=== PATIENT | female | born 1945 | race Caucasian/White ===

== ENCOUNTER 2020-02-16 16:55 | Inpatient (IN) ==
[2020-02-16] MEDS ORDERED: SODIUM CHLORIDE 0.9% 1000ML 1,000 ML IV SCH (17:15)
--- NOTE | 2020-02-16 17:18 | Emergency Department Note ---
Impression & Plan Fall, Acute hip pain ED Provider Note INFORMANT: Patient ED PROVIDER(S): Dillon Viveors MD CHIEF COMPLAINT: Left hip pain PLAN: Disposition: Admit Condition: Good MEDICAL DECISION MAKING: Patient had an accidental fall. She complained of isolated left hip and pelvic pain. She was treated with Dilaudid and Zofran. She was feeling better with this. The patient had x-ray imaging which shows an acute hip fracture. The patient had a consultation placed with [facility], Dr. Perea. The patient will be admitted. I discussed the case with the hospitalist service, Dr. Atkins. Patient and were informed. I gave my usual and customary discussion regarding this issue. Triage Nursing notes reviewed and agree them. Vital Signs: reviewed and remarkable for no significant abnormalities Differential diagnosis: Fracture, subluxation, dislocation, contusion, ligamentous injury, neurovascular, compartment syndrome, rhabdomyolysis, as well as other pathologies. Diagnostics interpreted by me: Imaging studies: X-ray imaging of the left hip reveals a fracture of the femoral neck. Consultation(s): [facility] hospitalist service HPI: The patient is a 74 year old female who presents to the Emergency Room with complaints of left hip pain. This started this afternoon after a fall and is sharp and worse with movement. The patient also notes the following associated symptoms, none. The patient has been given IV fentanyl by EMS for relieving factors. Current pain is rated as 4/10. Patient states she fell accidentally and landed on the left side. She is due to have left hip surgery by [facility] in 3 days. Pt denies LOC, headache, fevers, chills, diaphoresis, visual changes, neck pain, chest pain, breathing difficulties, nausea, vomiting, abdominal pain, back pain, melena, hematochezia, urinary symptoms, numbness, weakness, lymphadenopathy, rash, or other complaints. ROS: See above HPI for pertinent positives & negatives. A total of 10 systems reviewed and were otherwise negative. PAST MEDICAL HISTORY:See Below degenerative disc disease PAST SURGICAL HISTORY:See Below total knee replacement, total hip replacement FAMILY HISTORY:See Below SOCIAL HISTORY:See Below HOME MEDICATIONS:See Below ALLERGIES:See Below VITALS:See Below PHYSICAL EXAMINATION: GENERAL: Awake, alert, uncomfortable-appearing, in no distress HENT: Normocephalic, atraumatic. Oropharynx unremarkable. EYES: Normal conjunctiva. Sclera non-icteric. NECK: Inspection normal. Non-tender. Supple. No nuchal rigidity. FROM. No masses. RESPIRATORY: Clear to auscultation. No wheezes. No rales. Normal respiratory effort. CARDIAC: Normal rate. Normal rhythm. No murmurs. No rubs. Extremities warm and well perfused. Pulses equal. No JVD. GI: Soft, non-distended. No tenderness to palpation. No rebound or guarding. No masses. RECTAL: Deferred. MUSCULOSKELETAL: Limited range of motion of the left hip secondary to pain. Tenderness of the left hip and hemipelvis. Chest examination reveals no tenderness. The back is symmetrical on inspection without obvious abnormality. There is no CVA tenderness to palpation. No joint edema. LOWER EXTREMITIES: Calves are equal size bilaterally and non-tender. No edema. No discoloration. NEURO: Normal sensorium. No sensory or motor deficits noted. SKIN: No rash or jaundice noted. ED COURSE: Critical Care: None Dillon Viveros MD Past Med/Surg History Medical History (Updated 02/16/20 @ 20:24 by Morales Atkins MD) Anxiety Arthritis GERD (gastroesophageal reflux disease) Osteoporosis Surgical History (Updated 07/15/19 @ 10:14 by Tico Carranza) History of back surgery DISCECTOMY History of carpal tunnel release RIGHT History of cataract surgery R/L History of colonoscopy History of hysterectomy OVARIES REMAIN History of knee replacement R and L Social History Smoking Status: Former smoker Tobacco Type: Cigarettes Second Hand Exposure: Yes; Hx Alcohol Use: No Hx Substance Use: No Preferred Language: Romanian Communication Ability: Effective [employer] Required: No Beliefs That Will Affect Care: None marital status: Current Living Situation: Spouse Other Information That Helps Us Care for You: No Feels Safe at Home: Yes Safety Concerns: Feels Safe At This Time Allergies Allergies Allergy/AdvReac Type Severity Reaction Status Date / Time No Known Allergies Allergy Verified 02/16/20 19:36 Home Meds Home Medications Medication Instructions Recorded Confirmed risedronate [Actonel] 150 mg PO MONTHLY 07/02/19 02/16/20 sertraline [Zoloft] 25 mg PO QAM 07/02/19 02/16/20 omeprazole 40 mg PO QAM 02/16/20 02/16/20 Results & Data (ED) Vital Signs Vital Signs - 24 hr 02/16/20 16:55 02/16/20 17:29 02/16/20 17:30 Temperature 36.7 C Temperature Source Oral Pulse Rate 72 76 Pulse Rate [Apical] 75 Pulse Rate from SpO2 Sensor 75 Respiratory Rate 20 20 23 Respiratory Effort / Characteristics Non-Labored Non-Labored Spontaneous Respiratory Depth Normal Normal Respiratory Pattern Regular Blood Pressure 158/55 H 184/71 H Blood Pressure [Right Arm] 158/55 H Blood Pressure Mean 89 113 Blood Pressure Mean [Right Arm] 89 Blood Pressure Position [Right Arm] Pulse Oximetry 95 96 95 Oxygen Delivery Method Room Air Room Air Sepsis Recent Fever Within 48 Hours No Sepsis New/Unexplained Change in Mental Status N/A Sepsis Action Taken by Nursing No Action Required 02/16/20 17:36 02/16/20 18:00 02/16/20 18:30 Temperature Temperature Source Pulse Rate 77 74 76 Pulse Rate [Apical] Pulse Rate from SpO2 Sensor 78 74 76 Respiratory Rate 19 16 17 Respiratory Effort / Characteristics Respiratory Depth Respiratory Pattern Blood Pressure 172/74 H 156/76 H Blood Pressure [Right Arm] Blood Pressure Mean 92 102 Blood Pressure Mean [Right Arm] Blood Pressure Position [Right Arm] Pulse Oximetry 96 91 93 Oxygen Delivery Method Sepsis Recent Fever Within 48 Hours Sepsis New/Unexplained Change in Mental Status Sepsis Action Taken by Nursing 02/16/20 19:00 Temperature Temperature Source Pulse Rate Pulse Rate [Apical] 72 Pulse Rate from SpO2 Sensor Respiratory Rate 16 Respiratory Effort / Characteristics Respiratory Depth Respiratory Pattern Blood Pressure Blood Pressure [Right Arm] 150/87 H Blood Pressure Mean Blood Pressure Mean [Right Arm] 108 Blood Pressure Position [Right Arm] Lying Pulse Oximetry 93 Oxygen Delivery Method Room Air Sepsis Recent Fever Within 48 Hours Sepsis New/Unexplained Change in Mental Status Sepsis Action Taken by Nursing Laboratory Data Result diagrams: 02/16/20 17:55 02/16/20 17:55 Lab Results 02/16/20 02/16/20 02/16/20 Range/Units 17:55 17:55 17:55 WBC 13.47 H (4.8-10.8) K/uL RBC 4.25 (4.2-5.4) M/uL Hgb 12.5 (12.0-16.0) g/dL Hct 39.4 (37-47) % MCV 92.7 (80-100) fL MCH 29.4 (25-34) pg MCHC 31.7 L (32-36) g/dL RDW Std Deviation 46.6 H (36.4-46.3) fL RDW Coeff of Puja 13.6 (11.5-14.5) % Plt Count 291 (130-400) K/uL MPV 11.7 H (7.4-10.4) fL Immature Gran % (Auto) 0.2 % Neut % (Auto) 83.0 % Lymph % (Auto) 9.3 % Archuleta % (Auto) 7.1 % Eos % (Auto) 0.3 % Baso % (Auto) 0.1 % Neut # (Auto) 11.18 H (1.4-6.5) K/uL Lymph # (Auto) 1.25 (1.2-3.4) K/uL Archuleta # (Auto) 0.96 H (0.11-0.59) K/uL Eos # (Auto) 0.04 (0-0.5) K/uL Baso # (Auto) 0.01 (0-0.2) K/uL Immature Gran # (Auto) 0.03 H (0.00-0.02) K/uL PT 11.6 (9.0-12.0) Seconds INR 1.1 (0.9-1.1) APTT 27.1 (21.0-31.0) Seconds PTT Ratio 1.0 Sodium 137 (136-145) mmol/L Potassium 4.4 (3.5-5.1) mmol/L Chloride 108 H (98-107) mmol/L Carbon Dioxide 23 (21-32) mmol/L Anion Gap 6.0 (3-11) BUN 26 H (7-18) mg/dl Creatinine 1.03 (0.6-1.2) mg/dl Est Cr Clr Drug Dosing Not Reportable Est GFR ( Amer) 62.5 Est GFR (Non-Af Amer) 53.9 BUN/Creatinine Ratio 25.0 H (10-20) Glucose 112 H (70-99) mg/dl Calcium 9.4 (8.5-10.1) mg/dl Urine Color Urine Appearance (Clear) Urine pH (4.5-7.5) Ur Specific Cando (1.000-1.030) Urine Protein (Negative) Urine Glucose (UA) (Negative) Urine Ketones (Negative) Urine Blood (Negative) Urine Nitrite (Negative) Urine Bilirubin (Negative) Urine Urobilinogen (Negative) Ur Leukocyte Esterase (Negative) 02/16/20 Range/Units 18:50 WBC (4.8-10.8) K/uL RBC (4.2-5.4) M/uL Hgb (12.0-16.0) g/dL Hct (37-47) % MCV (80-100) fL MCH (25-34) pg MCHC (32-36) g/dL RDW Std Deviation (36.4-46.3) fL RDW Coeff of Puja (11.5-14.5) % Plt Count (130-400) K/uL MPV (7.4-10.4) fL Immature Gran % (Auto) % Neut % (Auto) % Lymph % (Auto) % Archuleta % (Auto) % Eos % (Auto) % Baso % (Auto) % Neut # (Auto) (1.4-6.5) K/uL Lymph # (Auto) (1.2-3.4) K/uL Archuleta # (Auto) (0.11-0.59) K/uL Eos # (Auto) (0-0.5) K/uL Baso # (Auto) (0-0.2) K/uL Immature Gran # (Auto) (0.00-0.02) K/uL PT (9.0-12.0) Seconds INR (0.9-1.1) APTT (21.0-31.0) Seconds PTT Ratio Sodium (136-145) mmol/L Potassium (3.5-5.1) mmol/L Chloride (98-107) mmol/L Carbon Dioxide (21-32) mmol/L Anion Gap (3-11) BUN (7-18) mg/dl Creatinine (0.6-1.2) mg/dl Est Cr Clr Drug Dosing Est GFR ( Amer) Est GFR (Non-Af Amer) BUN/Creatinine Ratio (10-20) Glucose (70-99) mg/dl Calcium (8.5-10.1) mg/dl Urine Color Yellow Urine Appearance Clear (Clear) Urine pH 6.5 (4.5-7.5) Ur Specific Cando 1.017 (1.000-1.030) Urine Protein Negative (Negative) Urine Glucose (UA) Negative (Negative) Urine Ketones Negative (Negative) Urine Blood Negative (Negative) Urine Nitrite Negative (Negative) Urine Bilirubin Negative (Negative) Urine Urobilinogen Negative (Negative) Ur Leukocyte Esterase Negative (Negative) Administered Medications Promethazine HCl 12.5 mg/ (Sodium Chloride) 50.5 mls @ 202 mls/hr IV Q6H PRN PRN Reason: Nausea And Vomiting Stop: 03/17/20 20:41 Last Infusion: 02/16/20 22:45 Dose: 0 mls/hr Documented by: [id number] Admin: 02/16/20 22:20 Dose: 202 mls/hr Documented by: [id number] Acetaminophen (Ofirmev) 1,000 mg in 100 mls @ 400 mls/hr IV Q8H PRN PRN Reason: Pain or Fever Stop: 02/19/20 21:14 Last Infusion: 02/16/20 21:39 Dose: 0 mls/hr Documented by: [id number] Admin: 02/16/20 21:22 Dose: 400 mls/hr Documented by: [id number] Lactated Ringer's (Lr) 1,000 mls @ 125 mls/hr IV .Q8H MARTY Stop: 03/17/20 22:44 Last Admin: 02/16/20 22:42 Dose: 125 mls/hr Documented by: [id number] Senna/Docusate Sodium (Docusate Sodium/Senna 50/8.6mg Tab) 2 tab PO HS MARTY Stop: 03/17/20 20:59 Last Admin: 02/16/20 21:09 Dose: Not Given Documented by: [id number] Discontinued Medications Hydromorphone HCl (Hydromorphone Inj 0.5 Mg/0.5 Ml Syr) 0.5 mg IV Q20M PRN PRN Reason: Severe Pain (Rating 7,8,9,10) Stop: 03/01/20 17:10 Last Admin: 02/16/20 20:13 Dose: 0.5 mg Documented by: [id number] Admin: 02/16/20 18:10 Dose: 0.5 mg Documented by: [id number] Admin: 02/16/20 17:35 Dose: 0.5 mg Documented by: [id number] Sodium Chloride (Nss 1000ml) 1,000 mls @ 75 mls/hr IV .[id number] MARYT Stop: 02/17/20 06:34 Last Infusion: 02/16/20 21:34 Dose: 0 mls/hr Documented by: [id number] Infusion: 02/16/20 21:26 Dose: 0 mls/hr Documented by: [id number] Admin: 02/16/20 17:30 Dose: 75 mls/hr Documented by: [id number] Promethazine HCl 6.25 mg/ (Sodium Chloride) 50.25 mls @ 201 mls/hr IV NOW STA Stop: 02/16/20 20:34 Last Admin: 02/16/20 20:25 Dose: Not Given Documented by: [id number] Ondansetron HCl (Ondansetron Inj 2 Mg/Ml 2 Ml Vial) 4 mg IV NOW STA Stop: 02/16/20 18:16 Last Admin: 02/16/20 18:18 Dose: 4 mg Documented by: [id number] Ondansetron HCl (Ondansetron Inj 2 Mg/Ml 2 Ml Vial) 4 mg IV NOW STA Stop: 02/16/20 20:21 Last Admin: 02/16/20 20:24 Dose: 4 mg Documented by: [id number] Ondansetron HCl (Ondansetron Inj 2 Mg/Ml 2 Ml Vial) Confirm Administered Dose 4 mg .ROUTE .STK-MED ONE Stop: 02/16/20 20:22 Last Admin: 02/16/20 20:24 Dose: Not Given Documented by: [id number] Discharge Plan Visit Data Chief Complaint: Fall Stated Complaint: FALL, L HIP PAIN ED Provider: Dillon Viveros Discharge Problem: Fall, Acute hip pain Patient Disposition: Admitted As Inpatient Discharge Instructions Interventions: ED Discharge Assessment Last Done: 02/16/20 20:09
[2020-02-16] MEDS: HYDROmorphone INJ 0.5 MG/0.5 ML SYR IV PRN ×3 (17:35→20:13)
--- NOTE | 2020-02-16 17:55 | XRay Report ---
XR hip LT 2V w pelvis HISTORY: 74 years-old Female fall acute left hip pain status post fall COMPARISON: None TECHNIQUE: AP view of the pelvis with crosstable lateral view of the left hip FINDINGS: Demineralized appearance of the bones. Right hip total joint arthroplasty. Degenerative changes of th e SI joints and imaged lower lumbar spine. Moderate left hip osteoarthritis. There is an acute transc ervical fracture of the left femur which demonstrates fracture separation measuring up to approximate ly 7 mm. No associated displacement. There is mild associated impaction along the inferomedial cortex . IMPRESSION: Acute slightly impacted transcervical fracture of the left femur. ACT 112: Negative or not required by law. The above report was generated using voice recognition software. It may contain grammatical, syntax o r spelling errors. Electronically signed by: Vahid Walton M.D. 02/16/2020 5:53 PM
[2020-02-16 18:06] LABS: Basophils # (auto) 0.01 K/uL (0-0.2); Basophils % (auto) 0.1 %; Eosinophils # (auto) 0.04 K/uL (0-0.5); Eosinophils % (auto) 0.3 %; Hematocrit (blood only) 39.4 % (37-47); Hemoglobin 12.5 g/dL (12.0-16.0); Immature Granulocytes # (auto) 0.03 K/uL (0.00-0.02); Immature Granulocytes % (auto) 0.2 %; Lymphocytes # (auto) 1.25 K/uL (1.2-3.4); Lymphocytes % (auto) 9.3 %; Mean Corpuscular Hemoglobin 29.4 pg (25-34); Mean Corpuscular Hgb Conc 31.7 g/dL (32-36); Mean Corpuscular Volume 92.7 fL (80-100); Mean Platelet Volume 11.7 fL (7.4-10.4); Monocytes # (auto) 0.96 K/uL (0.11-0.59); Monocytes % (auto) 7.1 %; Neutrophils # (auto) 11.18 K/uL (1.4-6.5); Platelet Count 291 K/uL (130-400); RDW Coefficient of Variation 13.6 % (11.5-14.5); RDW Standard Deviation 46.6 fL (36.4-46.3); Red Blood Count 4.25 M/uL (4.2-5.4); White Blood Count 13.47 K/uL (4.8-10.8)
[2020-02-16] MEDS ORDERED: ONDANSETRON INJ 2 MG/ML 2 ML VIAL IV STA ×2 (18:15→20:20)
[2020-02-16 18:18] LABS: INR 1.1 (0.9-1.1); Partial Thromboplastin Time 27.1 Seconds (21.0-31.0); Prothrombin Time 11.6 Seconds (9.0-12.0)
[2020-02-16 18:21] LABS: Blood Urea Nitrogen 26 mg/dl (7-18); Calcium 9.4 mg/dl (8.5-10.1); Carbon Dioxide 23 mmol/L (21-32); Chloride 108 mmol/L (98-107); Est GFR (African American) 62.5; Est GFR (Non-African American) 53.9; Glucose 112 mg/dl (70-99); Potassium 4.4 mmol/L (3.5-5.1); Sodium 137 mmol/L (136-145)
[2020-02-16 19:08] LABS: Appearance Urine Clear (Clear); Bilirubin Urine Negative (Negative); Blood Urine Negative (Negative); Color Urine Yellow; Glucose Urine UA Negative (Negative); Ketones Urine Negative (Negative); Leukocyte Esterase Urine Negative (Negative); Nitrite Urine Negative (Negative); Protein Urine Negative (Negative); Specific Gravity Urine 1.017 (1.000-1.030); Urobilinogen Urine Negative (Negative); pH Urine 6.5 (4.5-7.5)
--- NOTE | 2020-02-16 20:11 | History & Physical Report ---
Date of Service February 16, 2020 Assessment & Plan (1) Fall: Suspected mechanical fall secondary to OA Left hip. (2) Closed left hip fracture: Consult orthopedics. NPO after midnight. Analgesia with acetaminophen primarily given significant side effects to opiates Antiemetics with ondansetron +/- Phenergan CXR/EKG for pre-op clearance Revised cardiac risk score 0; 3.9% 30-day risk of , [place], or cardiac arrest (3) Osteoporosis: Vitamin D level with AM labs Follow up with PCP given extended duration of Actonel. (4) Anxiety: Continue sertraline 25mg PO QAM (5) GERD (gastroesophageal reflux disease): Switch omeprazole for pantoprazole as per hospital formulary (6) DVT prophylaxis: SCDs Chemical prophylaxis post operatively as per orthopedics recommendations Admission and Anticipated Discharge Date Admission Date: 02/16/2020 History of Present Illness Chief Complaint: Fall, Left hip pain Primary Care Provider: Malou Gomes Sriram Bazan is a 74 year old female who presents to the ER with left hip pain after tripping up a step at home. She has been having problems with left hip osteoarthritis with planned total hip replacement in the near future. She feels the pain and instability in this hip led to her fall. Tripped walking up 1 step. No dizziness, shortness of breath prior to the fall. No loss of consciousness or hitting her head. She denies any history fo strokes or heart attacks. Takes Actonel for osteopor osis for the last 6-7 years and reports no recent DEXA scans within the last 2 years. Allergies Allergy/AdvReac Type Severity Reaction Status Date / Time No Known Allergies Allergy Verified 02/16/20 19:36 Home Medications Home Medications Medication Instructions Recorded Confirmed Type risedronate [Actonel] 150 mg PO MONTHLY 07/02/19 02/16/20 History sertraline [Zoloft] 25 mg PO QAM 07/02/19 02/16/20 History omeprazole 40 mg PO QAM 02/16/20 02/16/20 History Past Med/Surg History Medical History Anxiety Arthritis GERD (gastroesophageal reflux disease) Osteoporosis Surgical History History of back surgery DISCECTOMY History of carpal tunnel release RIGHT History of cataract surgery R/L History of colonoscopy History of hysterectomy OVARIES REMAIN History of knee replacement R and L Social History Smoking Status: Former smoker Tobacco Type: Cigarettes Second Hand Exposure: Yes; Hx Alcohol Use: No Hx Substance Use: No Preferred Language: Setswana Communication Ability: Effective Certified [employer]ologic Technician Required: No Beliefs That Will Affect Care: None marital status: Current Living Situation: Spouse Other Information That Helps Us Care for You: No Feels Safe at Home: Yes Safety Concerns: Feels Safe At This Time Review of Systems Review of Systems: All systems reviewed & are unremarkable except as noted in HPI & below Physical Exam Constitutional: WD/WN, vitals as above Eyes: PERRL, conjunctivae normal, anicteric sclerae ENMT: external ear and nose normal, oropharynx normal Neck: trachea midline, no thyromegaly Respiratory: normal respiratory effort, lungs clear to auscultation Cardiovascular: RRR, no murmur, no edema Gastrointestinal (Abdomen): normal bowel sounds, soft, nontender, no hepatosplenomegaly Musculoskeletal: Holding left hip in flexion and external rotation. Closed skin. NV intact distally. Pain with minimal int/ext hip rotation. Skin: no rashes, warm and dry Neurologic: moves all extremities and awake; not confused Psychiatric: A+Ox3, euthymic affect Results & Data Results & Data ([facility]) Vital Signs (Past 12 Hours) Vital Signs Temp Pulse Pulse Resp BP BP Pulse Ox 02/16/20 19:00 72 16 150/87 H 93 02/16/20 18:30 76 17 156/76 H 93 02/16/20 18:00 74 16 172/74 H 91 02/16/20 17:36 77 19 96 02/16/20 17:30 76 23 184/71 H 95 02/16/20 17:29 75 20 158/55 H 96 02/16/20 16:55 36.7 C 72 20 158/55 H 95 Diagnostic Findings XR hip LT 2V w pelvis IMPRESSION: Acute slightly impacted transcervical fracture of the left femur. Code Status & VTE Plan Code Status Full as discussed with the patient VTE Prophylaxis Plan VTE Prophylaxis will be ordered: Yes PG Care Time/CCT Total # of Minutes Spent Total Time Spent with Patient: Total time spent is greater than 50% in coordina tion of care (as documented) at patient's floor/unit and/or counseling patient: Coding Level of Care Code 26263 Initial Inpt Care Lvl 2 Diagnoses Fall W19.XXXA Closed left hip fracture S72.002A Osteoporosis M81.0 Anxiety F41.9 GERD (gastroesophageal reflux disease) K21.9 DVT prophylaxis Z29.9
[2020-02-16] MEDS ORDERED: PROMETHAZINE HCL 6.25 MG in SODIUM CHLORIDE 0.9% 50 ML IV STA (20:20)
[2020-02-16] MEDS ORDERED: ONDANSETRON INJ 2 MG/ML 2 ML VIAL ONE (20:21)
[2020-02-16] MEDS ORDERED: NALOXONE HCL 0.4 MG/1 ML VIAL/CARP IV PRN (20:42)
[2020-02-16] MEDS ORDERED: MAGNESIUM HYDROXIDE SUSP 30 ML UDC PO PRN (20:42)
[2020-02-16] MEDS ORDERED: bisacodyL 10 MG SUPP PR PRN (20:42)
[2020-02-16] MEDS ORDERED: PROMETHAZINE HCL 12.5 MG in SODIUM CHLORIDE 0.9% 50 ML IV PRN (20:42)
[2020-02-16] MEDS: DOCUSATE SODIUM/SENNA 50/8.6MG TAB PO SCH (21:09)
[2020-02-16] MEDS ORDERED: ONDANSETRON INJ 2 MG/ML 2 ML VIAL IV PRN (21:15)
[2020-02-16] MEDS: ACETAMINOPHEN 1,000 MG/100 ML VIAL IV PRN (21:22)
[2020-02-16] MEDS: LACTATED RINGER'S 1,000 ML IV SCH (22:42)
[2020-02-17] MEDS: HYDROmorphone INJ 0.5 MG/0.5 ML SYR IV PRN ×4 (04:49→14:12)
[2020-02-17] MEDS: LACTATED RINGER'S 1,000 ML IV SCH ×2 (04:49→12:24)
[2020-02-17 06:12] LABS: Hematocrit (blood only) 34.8 % (37-47); Hemoglobin 11.3 g/dL (12.0-16.0); Mean Corpuscular Hemoglobin 30.5 pg (25-34); Mean Corpuscular Hgb Conc 32.5 g/dL (32-36); Mean Corpuscular Volume 93.8 fL (80-100); Mean Platelet Volume 11.6 fL (7.4-10.4); Platelet Count 257 K/uL (130-400); RDW Coefficient of Variation 13.7 % (11.5-14.5); RDW Standard Deviation 47.3 fL (36.4-46.3); Red Blood Count 3.71 M/uL (4.2-5.4); White Blood Count 9.03 K/uL (4.8-10.8)
[2020-02-17 06:41] LABS: BUN Creatinine Ratio 25.2 (10-20); Calcium 9.3 mg/dl (8.5-10.1); Creatinine Clr Calc Pharmacy 54.2 ml/min; Est GFR (African American) 70.7; Potassium 4.5 mmol/L (3.5-5.1)
[2020-02-17] MEDS: PANTOprazole 40 MG TAB PO SCH (07:58)
[2020-02-17] MEDS: SERTRALINE HCL 50 MG TABLET PO SCH (07:59)
--- NOTE | 2020-02-17 08:00 | Orthopedic Consultation ---
Date of Consultation February 17, 2020 Assessment & Plan (1) Closed left hip fracture: Patient was scheduled for left total hip arthroplasty this week. Plans will be for left total hip arthroplasty hopefully today. At this time, the patient understands that Dr. Payne may not be available to do her surgery and is agreeable to have 1 of our [facility] physicians here in [place] to perform the left MINDY. Patient states that she had some preop testing done yesterday including a COVID-19 test. We have called [facility] to see if that test is back. If not we will order a preop COVID-19 test here. Plan for left MINDY today Supervising Physician Co-Signing Physician Notes Patient seen and examined agree with above assessment and plan. History of Present Illness Reason for Consultation: Left hip fracture Attending Physician: Morales Atkins MD History of Present Illness Patient is a 74-year-old white female known to our practice with h/o R MINDY performed June 2019 at [facility], who was admitted last night for left hip fracture. The patient states that she was scheduled for a left total hip arthroplasty with Dr. Sierra this week. Patient states that she was using a walker for ambulation due to the amount of pain she was having with the left hip and her arthritis. She was trying to go up 1 step from her garage into her home and lost her balance. She fell onto the floor and had immediate pain in the left hip and groin. She was unable to ambulate due to the pain. She states that her tried to help her up and the pain was excruciating. She was brought to [facility] emergency room and was seen by the staff. X-rays were taken and was found that she had a left displaced femoral neck fracture. She denies any shortness of breath, chest pain, lightheadedness prior to or after the fall. She denies hitting her head. She denies losing consciousness. Patient currently awake and stating that she is having some discomfort in the left hip. No other complaints at this time. She is hoping her total hip replacement can be done today. Allergies Allergy/AdvReac Type Severity Reaction Status Date / Time No Known Allergies Allergy Verified 02/16/20 19:36 Home Medications Home Medications Medication Instructions Recorded Confirmed Type risedronate [Actonel] 150 mg PO MONTHLY 07/02/19 02/16/20 History sertraline [Zoloft] 25 mg PO QAM 07/02/19 02/16/20 History omeprazole 40 mg PO QAM 02/16/20 02/16/20 History Patient History Medical History Anxiety Arthritis GERD (gastroesophageal reflux disease) Osteoporosis Surgical History History of back surgery DISCECTOMY History of carpal tunnel release RIGHT History of cataract surgery R/L History of colonoscopy History of hysterectomy OVARIES REMAIN History of knee replacement R and L Social History Smoking Status: Former smoker Tobacco Type: Cigarettes Second Hand Exposure: Yes; Hx Alcohol Use: No Hx Substance Use: No Preferred Language: Bel[place]an Communication Ability: Effective Physician Assistant Certified Required: No Beliefs That Will Affect Care: None marital status: Current Living Situation: Spouse Other Information That Helps Us Care for You: No Feels Safe at Home: Yes Safety Concerns: Feels Safe At This Time Review of Systems Review of Systems: All systems reviewed & are unremarkable except as noted in HPI & below Physical Exam Physical Exam: Patient is a mildly obese white female who is alert and oriented x3, mild amount of distress due to left hip pain, pleasant and cooperative. On examination of her left lower extremity, it is mildly shortened and externally rotated compared to her right. Left thigh is soft and mildly tender on the lateral aspect of the hip. No range of motion is done at this ti me due to hip fracture. There are no abrasions or bruising noted in lateral hip at this time. Sensation is intact over the thigh and she is nontender at the left knee. No range of motion is done of the left knee at this time due to left hip fracture. Left ankle and toes have good range of motion, sensation is intact. She is nontender at the right hip knee and ankle and range of motion is within normal limits. Well-healed scar noted over the right hip from previous right MINDY. Distal pulses are equal bilaterally of the lower extremities. She is nontender at the shoulders elbows and wrists and range of motion is within normal limits. Sensation is intact. Cap refill is less than 2 seconds. Pulses are equal laterally of the upper extremities. Upper extremity strengths are equal bilaterally. There is no gross motor or sensory loss seen at this time. Results & Data ([facility]) Vital Signs (Past 12 Hours) Vital Signs Temp Pulse Pulse Pulse Resp BP BP 02/17/20 07:50 36.7 C 62 16 157/62 H 02/16/20 23:15 36.5 C 58 L 16 118/74 02/16/20 20:40 95 H 170/76 H 02/16/20 20:36 36.6 C 95 H 20 201/83 H 02/16/20 20:09 72 16 152/82 H Pulse Ox 02/17/20 07:50 100 02/16/20 23:15 99 02/16/20 20:40 02/16/20 20:36 99 02/16/20 20:09 99 Laboratory Results Laboratory Results WBC 9.03 K/uL (4.8-10.8) 02/17/20 05:37 RBC 3.71 M/uL (4.2-5.4) L 02/17/20 05:37 Hgb 11.3 g/dL (12.0-16.0) L 02/17/20 05:37 Hct 34.8 % (37-47) L 02/17/20 05:37 MCV 93.8 fL (80-100) 02/17/20 05:37 MCH 30.5 pg (25-34) 02/17/20 05:37 MCHC 32.5 g/dL (32-36) 02/17/20 05:37 RDW Std Deviation 47.3 fL (36.4-46.3) H 02/17/20 05:37 RDW Coeff of Puja 13.7 % (11.5-14.5) 02/17/20 05:37 Plt Count 257 K/uL (130-400) 02/17/20 05:37 MPV 11.6 fL (7.4-10.4) H 02/17/20 05:37 Immature Gran % (Auto) 0.2 % 02/16/20 17:55 Neut % (Auto) 83.0 % 02/16/20 17:55 Lymph % (Auto) 9.3 % 02/16/20 17:55 [place] % (Auto) 7.1 % 02/16/20 17:55 Eos % (Auto) 0.3 % 02/16/20 17:55 Baso % (Auto) 0.1 % 02/16/20 17:55 Neut # (Auto) 11.18 K/uL (1.4-6.5) H 02/16/20 17:55 Lymph # (Auto) 1.25 K/uL (1.2-3.4) 02/16/20 17:55 [place] # (Auto) 0.96 K/uL (0.11-0.59) H 02/16/20 17:55 Eos # (Auto) 0.04 K/uL (0-0.5) 02/16/20 17:55 Baso # (Auto) 0.01 K/uL (0-0.2) 02/16/20 17:55 Immature Gran # (Auto) 0.03 K/uL (0.00-0.02) H 02/16/20 17:55 PT 11.6 Seconds (9.0-12.0) 02/16/20 17:55 INR 1.1 (0.9-1.1) 02/16/20 17:55 APTT 27.1 Seconds (21.0-31.0) 02/16/20 17:55 PTT Ratio 1.0 02/16/20 17:55 Sodium 140 mmol/L (136-145) 02/17/20 05:37 Potassium 4.5 mmol/L (3.5-5.1) 02/17/20 05:37 Chloride 108 mmol/L (98-107) H 02/17/20 05:37 Carbon Dioxide 27 mmol/L (21-32) 02/17/20 05:37 Anion Gap 5.0 (3-11) 02/17/20 05:37 BUN 24 mg/dl (7-18) H 02/17/20 05:37 Creatinine 0.93 mg/dl (0.6-1.2) 02/17/20 05:37 Est Cr Clr Drug Dosing 54.2 ml/min 02/17/20 05:37 Est GFR ( Amer) 70.7 02/17/20 05:37 Est GFR (Non-Af Amer) 61.0 02/17/20 05:37 BUN/Creatinine Ratio 25.2 (10-20) H 02/17/20 05:37 Glucose 105 mg/dl (70-99) H 02/17/20 05:37 Calcium 9.3 mg/dl (8.5-10.1) 02/17/20 05:37 25-OH Vitamin D Total 29.0 ng/ml (30-100) L 02/17/20 05:37 Urine Color Yellow 02/16/20 18:50 Urine Appearance Clear (Clear) 02/16/20 18:50 Urine pH 6.5 (4.5-7.5) 02/16/20 18:50 Ur Specific [place] 1.017 (1.000-1.030) 02/16/20 18:50 Urine Protein Negative (Negative) 02/16/20 18:50 Urine Glucose (UA) Negative (Negative) 02/16/20 18:50 Urine Ketones Negative (Negative) 02/16/20 18:50 Urine Blood Negative (Negative) 02/16/20 18:50 Urine Nitrite Negative (Negative) 02/16/20 18:50 Urine Bilirubin Negative (Negative) 02/16/20 18:50 Urine Urobilinogen Negative (Negative) 02/16/20 18:50 Ur Leukocyte Esterase Negative (Negative) 02/16/20 18:50 Diagnostic Findings atient: KASEY JONES RAdmit Date: 02/16/20 MR#: [id number]: [address] Acct ID:[id number]: Date: 1945[facility] Zip: [place] [address] Age: 74Location: ED Sex: FRoom/Bed: Att Phy:Diagnosis: FALL Ann Phy: Malou Gomes D.O.Service Date: 02/16/20 [facility] Phy:Interpreting Phy: Amos Walton Admit Phy: Ordering Phy: Dillon Viveros MD cc: ~ XR hip LT 2V w pelvis HISTORY: 74 years-old Female fall acute left hip pain status post fall COMPARISON: None TECHNIQUE: AP view of the pelvis with crosstable lateral view of the left hip FINDINGS: Demineralized appearance of the bones. Right hip total joint arthroplasty. Degenerative changes of the SI joints and imaged lower lumbar spine. Moderate left hip osteoarthritis. There is an acute transcervical fracture of the left femur which demonstrates fracture separation measuring up to approximately 7 mm. No associated displacement. There is mild associated impaction along the inferomedial cortex. IMPRESSION: Acute slightly impacted transcervical fracture of the left femur.
--- NOTE | 2020-02-17 08:01 | XRay Report ---
XR chest 1V portable CLINICAL HISTORY: Fall, pre-op COMPARISON STUDY: No previous studies for comparison. FINDINGS: Lung volumes are normal. 1.1 cm oval-shaped nodular opacity projects over the right mid larisa g. Minimal left basilar opacity favors atelectasis. There is no pneumothorax. Equivocal trace left pl eural effusion is noted. No evidence for pulmonary edema. Mild cardiomegaly is noted. There is probab le calcific tendinitis of the left rotator cuff. IMPRESSION: 1. No acute cardiopulmonary findings. 2. 1.1 cm oval-shaped nodular opacity which projects over the right midlung. A benign etiology is fav ored given the appearance however a nonemergent chest CT is recommended. 3. Minimal left basilar opacity suggestive of atelectasis. ACT 112: Negative or not required by law. Electronically signed by: Zeke Enamorado M.D. 02/17/2020 8:00 AM
--- NOTE | 2020-02-17 08:22 | XRay Report ---
XR femur LT 2V routine CLINICAL HISTORY: hip fracture/fall COMPARISON: None. FINDINGS: Note is made of an acute mildly displaced transcervical fracture of the left femur. No dis viktor left femoral fracture is noted. Left knee arthroplasty is intact. IMPRESSION: Acute mildly displaced transcervical fracture of the left femur. ACT 112: Negative or not required by law. Electronically signed by: Zeke Enamorado M.D. 02/17/2020 8:20 AM
[2020-02-17] MEDS ORDERED: SODIUM CHLORIDE 0.9% 250 ML IV PRN (09:15)
--- NOTE | 2020-02-17 09:56 | Anesthesiology Consultation ---
Date of Service February 17, 2020 History Surgery Operation Date: 02/17/20 08:20 Proposed Procedures p Left Total Hip Arthroplasty - Joel Aponte, Height/Weight Height: 5 ft 4 in Weight: 77.4 kg Allergies Allergy/AdvReac Type Severity Reaction Status Date / Time No Known Allergies Allergy Verified 02/16/20 19:36 Medications Home Medications Medication Instructions Recorded Confirmed Last Taken risedronate [Actonel] 150 mg PO MONTHLY 07/02/19 02/16/20 01/19/20 sertraline [Zoloft] 25 mg PO QAM 07/02/19 02/16/20 02/16/20 omeprazole 40 mg PO QAM 02/16/20 02/16/20 02/16/20 Active Medications Generic Name Dose Route Start Last Admin Trade Name Freq PRN Reason Stop Dose Admin Hydromorphone HCl 0.5 mg 02/16/20 21:15 02/17/20 07:58 Hydromorphone Inj 0.5 Mg/0.5 Ml Syr IV 03/01/20 21:14 0.5 mg Q2H PRN Administration Pain Promethazine HCl 12.5 mg/ 50.5 mls @ 202 mls/hr 02/16/20 20:42 02/16/20 22:45 Sodium Chloride IV 03/17/20 20:41 Infused Q6H PRN Infusion Nausea And Vomiting Acetaminophen 1,000 mg in 100 mls @ 400 mls/hr 02/16/20 21:15 02/16/20 21:39 Ofirmev IV 02/19/20 21:14 Infused Q8H PRN Infusion Pain or Fever Lactated Ringer's 1,000 mls @ 125 mls/hr 02/16/20 22:45 02/17/20 04:49 Lr IV 03/17/20 22:44 125 mls/hr .Q8H MARTY Administration Pantoprazole Sodium 40 mg 02/17/20 09:00 02/17/20 07:58 Pantoprazole 40 Mg Tab PO 03/18/20 08:59 40 mg QAM MARTY Administration Senna/Docusate Sodium 2 tab 02/16/20 21:00 02/16/20 21:09 Docusate Sodium/Senna 50/8.6mg Tab PO 03/17/20 20:59 Not Given HS MARTY Sertraline HCl 25 mg 02/17/20 09:00 02/17/20 07:59 Sertraline Hcl 50 Mg Tablet PO 03/18/20 08:59 25 mg QAM MARTY Administration NPO Date Last Intake of Fluids: 02/17/20 Time Last Intake of Fluids: 00:00 Past Medical History Medical History Anxiety Arthritis GERD (gastroesophageal reflux disease) Osteoporosis Past Surgical History Surgical History History of back surgery DISCECTOMY History of carpal tunnel release RIGHT History of cataract surgery R/L History of colonoscopy History of hysterectomy OVARIES REMAIN History of knee replacement R and L Social History Smoking Status: Former smoker Hx Alcohol Use: No Hx Substance Use: No Physical Exam Vital Signs Last Vital Signs Temp 36.7 C 02/17/20 07:50 Pulse 62 02/17/20 07:50 Resp 16 02/17/20 07:50 BP 157/62 H 02/17/20 07:50 Pulse Ox 100 02/17/20 07:50 Testing Laboratory Results 02/17/20 05:37 02/17/20 05:37 PT 11.6 Seconds (9.0-12.0) 02/16/20 17:55 INR 1.1 (0.9-1.1) 02/16/20 17:55 APTT 27.1 Seconds (21.0-31.0) 02/16/20 17:55 Urine Color Yellow 02/16/20 18:50 Urine Appearance Clear (Clear) 02/16/20 18:50 Urine pH 6.5 (4.5-7.5) 02/16/20 18:50 Ur Specific [place] 1.017 (1.000-1.030) 02/16/20 18:50 Urine Protein Negative (Negative) 02/16/20 18:50 Urine Glucose (UA) Negative (Negative) 02/16/20 18:50 Urine Ketones Negative (Negative) 02/16/20 18:50 Urine Nitrite Negative (Negative) 02/16/20 18:50 Ur Leukocyte Esterase Negative (Negative) 02/16/20 18:50 Blood Type A Negative 02/17/20 08:06 Antibody Screen POSITIVE A 02/17/20 08:06 Electrocardiogram Date: 02/16/20 Normal sinus rhythm Nonspecific ST and T wave abnormality Abnormal ECG No previous ECGs available Chest X-Ray Date: 02/16/20 1. No acute cardiopulmonary findings. 2. 1.1 cm oval-shaped nodular opacity which projects over the right midlung. A benign etiology is favored given the appearance however a nonemergent chest CT is recommended. 3. Minimal left basilar opacity suggestive of atelectasis.
[2020-02-17] MEDS: ACETAMINOPHEN 1,000 MG/100 ML VIAL IV PRN (10:19)
[2020-02-17] MEDS ORDERED: ONDANSETRON INJ 2 MG/ML 2 ML VIAL ONE (15:31)
[2020-02-17] MEDS ORDERED: MIDAZOLAM HCL 1 MG/ML 2ML VIAL ONE (15:31)
[2020-02-17] MEDS ORDERED: LIDOCAINE HCL 2% 2 ML VIAL/AMP(20MG/ML) INFIL ONE (15:31)
[2020-02-17] MEDS ORDERED: PROPOFOL IV EMULSION 10 MG/ML 20 ML VIAL IV ONE ×2 (15:31→17:31)
[2020-02-17] MEDS ORDERED: fentaNYL citrate 100 MCG/2 ML VIAL ONE (15:32)
[2020-02-17] MEDS ORDERED: ONDANSETRON INJ 2 MG/ML 2 ML VIAL IV PRN ×2 (15:49→19:34)
[2020-02-17] MEDS ORDERED: HYDROmorphone INJ 1 MG/ML SYRINGE IV PRN (15:49)
[2020-02-17] MEDS ORDERED: ATROPINE SULFATE 0.1 MG/ML 10ML SYR IV PRN (15:49)
[2020-02-17] MEDS ORDERED: fentaNYL citrate 100 MCG/2 ML VIAL IV PRN (15:49)
[2020-02-17] MEDS ORDERED: PHENYLEPHRINE 100MCG/ML 5ML SYR IV PRN (15:49)
[2020-02-17] MEDS ORDERED: LABETALOL HCL IV 5 MG/ML 20ML IV PRN (15:49)
[2020-02-17] MEDS ORDERED: ePHEDrine sulfate 50 MG/ML AMP IV PRN (15:49)
--- NOTE | 2020-02-17 15:51 | Anesthesiology Consultation ---
Date of Service February 17, 2020 Patient tested negative for Covid 19 today. Assessment & Plan (1) Encounter for pre-operative examination: Chart Review Chart Review: Acceptable Risk for Surgery and Patient NOT seen in Pre Admission Testing Consults Requested none History Surgery Operation Date: 02/17/20 08:20 Proposed Procedures p Left Total Hip Arthroplasty - Joel Aponte DO Height/Weight Height: 5 ft 4 in Weight: 77.4 kg Allergies Allergy/AdvReac Type Severity Reaction Status Date / Time No Known Allergies Allergy Verified 02/16/20 19:36 Medications Home Medications Medication Instructions Recorded Confirmed Last Taken risedronate [Actonel] 150 mg PO MONTHLY 07/02/19 02/16/20 01/19/20 sertraline [Zoloft] 25 mg PO QAM 07/02/19 02/16/20 02/16/20 omeprazole 40 mg PO QAM 02/16/20 02/16/20 02/16/20 Active Medications Generic Name Dose Route Start Last Admin Trade Name Freq PRN Reason Stop Dose Admin Hydromorphone HCl 0.5 mg 02/16/20 21:15 02/17/20 14:12 Hydromorphone Inj 0.5 Mg/0.5 Ml Syr IV 03/01/20 21:14 0.5 mg Q2H PRN Administration Pain Promethazine HCl 12.5 mg/ 50.5 mls @ 202 mls/hr 02/16/20 20:42 02/16/20 22:45 Sodium Chloride IV 03/17/20 20:41 Infused Q6H PRN Infusion Nausea And Vomiting Acetaminophen 1,000 mg in 100 mls @ 400 mls/hr 02/16/20 21:15 02/17/20 10:44 Ofirmev IV 02/19/20 21:14 Infused Q8H PRN Infusion Pain or Fever Lactated Ringer's 1,000 mls @ 125 mls/hr 02/16/20 22:45 02/17/20 12:24 Lr IV 03/17/20 22:44 125 mls/hr .Q8H MARTY Administration Pantoprazole Sodium 40 mg 02/17/20 09:00 02/17/20 07:58 Pantoprazole 40 Mg Tab PO 03/18/20 08:59 40 mg QAM MARTY Administration Senna/Docusate Sodium 2 tab 02/16/20 21:00 08/31/20 21:09 Docusate Sodium/Senna 50/8.6mg Tab PO 03/17/20 20:59 Not Given HS MARTY Sertraline HCl 25 mg 02/17/20 09:00 02/17/20 07:59 Sertraline Hcl 50 Mg Tablet PO 03/18/20 08:59 25 mg QAM MARTY Administration NPO Date Last Intake of Fluids: 02/16/20 Time Last Intake of Fluids: 09:00 Date Last Intake of Solids: 02/16/20 Time Last Intake of Solids: 09:00 Past Medical History Medical History Anxiety Arthritis GERD (gastroesophageal reflux disease) Osteoporosis Past Surgical History Surgical History History of back surgery DISCECTOMY History of carpal tunnel release RIGHT History of cataract surgery R/L History of colonoscopy History of hysterectomy OVARIES REMAIN History of knee replacement R and L Social History Smoking Status: Former smoker Hx Alcohol Use: No Hx Substance Use: No Physical Exam Vital Signs Last Vital Signs Temp 37.5 C 02/17/20 15:25 Pulse 76 02/17/20 15:25 Resp 16 02/17/20 15:25 BP 139/61 02/17/20 15:25 Pulse Ox 93 02/17/20 15:25 Testing Laboratory Results 02/17/20 05:37 02/17/20 05:37 PT 11.6 Seconds (9.0-12.0) 02/16/20 17:55 INR 1.1 (0.9-1.1) 02/16/20 17:55 APTT 27.1 Seconds (21.0-31.0) 02/16/20 17:55 Urine Color Yellow 02/16/20 18:50 Urine Appearance Clear (Clear) 02/16/20 18:50 Urine pH 6.5 (4.5-7.5) 02/16/20 18:50 Ur Specific [place] 1.017 (1.000-1.030) 02/16/20 18:50 Urine Protein Negative (Negative) 02/16/20 18:50 Urine Glucose (UA) Negative (Negative) 02/16/20 18:50 Urine Ketones Negative (Negative) 08/31/20 18:50 Urine Nitrite Negative (Negative) 02/16/20 18:50 Ur Leukocyte Esterase Negative (Negative) 02/16/20 18:50 Blood Type A Negative 02/17/20 08:06 Antibody Screen POSITIVE A 02/17/20 08:06 Electrocardiogram Date: 02/16/20 Normal sinus rhythm Nonspecific ST and T wave abnormality Abnormal ECG No pre vious ECGs available Chest X-Ray Date: 02/16/20 1. No acute cardiopulmonary findings. 2. 1.1 cm oval-shaped nodular opacity which projects over the right midlung. A benign etiology is favored given the appearance however a nonemergent chest CT is recommended. 3. Minimal left basilar opacity suggestive of atelectasis.
[2020-02-17] MEDS ORDERED: ORTHO JOINT ANESTHETIC ONE (15:52)
[2020-02-17] MEDS ORDERED: BACITRACIN INJ 50,000 UNIT VIAL ONE (15:52)
--- NOTE | 2020-02-17 15:56 | History & Physical Bridge Note ---
Date of Service February 17, 2020 History & Physical Bridge Note I have examined the patient, reviewed the History & Physical and in the interval since the performance of the History & Physical I have noted the following changes of clinical significance: no changes noted
--- NOTE | 2020-02-17 15:57 | Orthopedic Progress Note ---
Date of Service February 17, 2020 Assessment & Plan (1) Closed left hip fracture: The patient is a 74-year-old female with displaced left femoral neck fracture sustained after a fall from standing height. The patient was medically stabilized on 02/17/2020. I indicated the patient for left total hip arthroplasty. The patient and family was informed of the risks and benefits of surgery, which include but not limited to infection, bleeding, blood clots, damage to nerves, vessels, bone and soft tissue, dislocation, leg length discrepancy, need for additional surgery and . The patient and family collectively chose to move forward with surgical intervention and informed consent was obtained. Admission and Anticipated Discharge Date Admission Date: February 16, 2020 Subjective Patient seen in preoperative holding, comfortable, no acute issues, pain well controlled. Medically stabilized for surgery. Review of Systems Review of Systems: All systems reviewed & are unremarkable except as noted in HPI & below Constitutional: as per Subjective / HPI Physical Exam Physical Exam: LLE NVSI +EHL/FHL/TA/GS SILT grossly, +2 DP pulse, compartments soft NT, shortened and externally rotated. Constitutional: WD/WN, vitals as above Results & Data ([facility]) Vital Signs (Past 12 Hours) Vital Signs Temp Pulse Resp BP Pulse Ox 02/17/20 15:25 37.5 C 76 16 139/61 93 02/17/20 07:50 36.7 C 62 16 157/62 H 100
[2020-02-17] MEDS ORDERED: ePHEDrine sulfate 50 MG/ML SYR ONE ×2 (16:17→16:59)
[2020-02-17] MEDS ORDERED: CEFAZOLIN 250 MG/ML 1 GM VIAL ONE (16:22)
[2020-02-17] MEDS ORDERED: ROPIVACAINE 0.5% HCL/PF 150 MG, BUPIVACAINE 0.5% MPF 30 ML, EPINEPHrine 30MG/30ML (OR U... INSTIL SCH (16:30)
[2020-02-17] MEDS ORDERED: CEFAZOLIN 2000MG 2,000 MG/15 ML SYR IV ONE (17:10)
[2020-02-17] MEDS ORDERED: ALBUMIN HUMAN 5% 12.5 GM/250 ML VIAL IV ONE (17:44)
--- NOTE | 2020-02-17 18:20 | Post Operative Brief Note ---
Immediate Post Op Note v1 Date of Surgery February 17, 2020 Pre & Post Diagnosis Operation Date: 02/17/20 08:20 Pre-Op Diagnosis: Closed Left Hip Fracture I identified the patient and participated in the time-out.: Yes Procedure Operation Date: 02/17/20 08:20 Actual Procedures p Left Total Hip Arthroplasty(Left) - Joel Aponte DO Surgeon Joel Aponte DO Patient Representative Dany Power Estimated Blood Loss 195 Findings Consistent with Post-Op Diagnosis Fluids 1400 cc LR, 500 cc albumin Specimens Femoral head Anesthesia Type Spinal MAC Complications none Disposition Disposition: Recovery Room Overlapping Procedure I was present for: the critical portions of procedure. I was immediately available: during the entire case. Back up surgeon: was not required during procedure.
--- NOTE | 2020-02-17 18:25 | Operative Report ---
Post Operative Report Pre & Post Diagnosis Operation Date: 02/17/20 08:20 Pre-Op Diagnosis: Closed Left Hip Fracture I identified the patient and participated in the time-out.: Yes Procedure Operation Date: 02/17/20 08:20 Actual Procedures p Left Total Hip Arthroplasty(Left) - Joel Aponte DO Surgeon Joel Aponte DO Lapper Dany Power Estimated Blood Loss 195 Findings Consistent with Post-Op Diagnosis Fluids 1400 cc LR, 500 cc albumin Specimens femoral head Anesthesia Type Spinal MAC Complications none Disposition Disposition: Recovery Room Indications The patient is a 74-year-old female with displaced left femoral neck fracture sustained after a fall from standing height. The patient was scheduled for elective left total hip arthroplasty on 02/19/[address] Payne in [place]. The patient was medically stabilized on 02/17/2020. I indicated the patient for left total hip arthroplasty. The patient and family was informed of the risks and benefits of surgery, which include but not limited to infection, bleeding, blood clots, damage to nerves, vessels, bone and soft tissue, dislocation, leg length discrepancy, need for additional surgery and . The patient and family collectively chose to move forward with surgical intervention and informed consent was obtained. Description of Procedure COMPONENTS USED: Jesse [employer]omet hip system: Acetabulum size 50 G7, femur size 12.5 standard extended offset, femoral head 36+3.5, liner 5036 high wall, acetabular screw 30 mm x 1. Following induction of adequate spinal anesthesia, the patient was transferred to the OR table and placed in lateral decubitus position with right hip down. The left hip was prepped and draped in the typical sterile fashion. A timeout was performed, patient identified and site christ confirmed. Appropriate antibiotics were given. A standard posterolateral/Manuela-Langenbeck incision was made. Subcutaneous tissue was sharply dissected. Electrocautery was utilized for hemostasis. The fascia was incised throughout the length of the wound and retracted with the Charnley retractor. The bursa was taken down and the short external rotators were identified. The piriformis was tagged with #1 Vicryl. The short external rotators and capsule were divided from the posterior aspect of the femur using electrocautery. The posterior capsule was tagged with #1 Vicryl. Both external rotators and posterior capsule were swept posterior and protected, along with protecting the sciatic nerve. The hip was dislocated by flexion and internally rotation in a controlled manner and exposure of the femoral neck was gained with an old-style Hohmann and a blunt cobra retractor. A femoral cutting guide was utilized for making the appropriate level femoral neck cut with reciprocating saw. The femoral head was removed, measured and reserved on the back table. Next, attention was turned to the acetabulum. A posterior and anterior offset retractor was placed to gain adequate exposure. Acetabular labrum as well as posterior capsule elements were removed using electrocautery and forceps. Fovea centralis was cleared of all soft tissue. Sequential reaming was performed starting at 44 mm and carried up to a 49 mm and decision was made to proceed with impaction of a 50 mm G7 Osteo-Ti cup. This was impacted and held using a single 30 mm bone screw. The trial acetabular liner was placed at this time. Next, attention was turned to the proximal femur where a Bovie and pickup was used to further clear short external rotators from their insertion on the femur. Box osteotome and canal finder was used to gain access to the femoral canal and the lateral reamer on power was used to further open the proximal lateral canal. Sequentially rasping was carried up to a 12.5 which gave good fit and fill of the proximal femur. A trial reduction was carried out with a standard extended offset femoral neck component a 36+0 mm femoral head. The trial reduction was stable in all degrees of rotation with no [id number] impingement. The hip was dislocated, trial components were removed and access to the acetabulum was re-established. The trial liner was removed and the cup was irrigated to ensure all debris was removed. The final acetabular liner was inserted and properly seated in the cup. Access to the femur was once more gained and the size 12.5 femoral stem with standard extended offset was impacted into position. The hip was once more assessed with the 36+0 mm femoral head. Stability was accessed and found to be excellent with equal leg lengths. The hip was dislocated for the last time and the final 36+0 ceramic femoral head was impacted in place and the hip was reduced. Range of motion was checked once again and found to be stable. A Betadine soak was performed. After 3 minutes, the hip was once more irrigated with copious sterile saline solution with bacitracin. The giovanny-incisional soft tissue was injected utilizing [place] ortho mix which includes a combination of Ropivicaine 0.5% 150mg, Bupivicaine 0.5%/Epinephrine 1:200,000 30ml, Toradol 30mg, Dexamethasone 4mg, Ketamine 10mg, Clonidine 100mcg and NSS 30ml Orthomix solution. The piriformis, external rotators and capsule were repaired to the greater trochanter through bone tunnels using #5 FiberWire. The fascia was closed using #1 Vicryl, subcutaneous tissue was closed using 2-0 Vicryl, and skin was closed with 3-0 V-lock suture and Dermabond Prineo. Sterile dressings were applied which included bonnie, 4x4s and tegaderm adhesive dressing. The patient tolerated the procedure well and was transported to PACU in stable condition. Due to the complex nature of the procedure, the entire surgery was performed with the operational assistance of aDny Power PA-C. The logging assistant, under direct supervision, was involved in the actual performance of all aspects of the surgical procedure including patient positioning, hemostasis, tissue retraction, instrument management and wound closure. I attest to the content of the Intraoperative Record and any orders documented therein. Any exceptions are noted below.
[2020-02-17] MEDS ORDERED: MEPERIDINE HCL 25 MG/ML CARP/VIAL ONE (18:56)
[2020-02-17] MEDS ORDERED: MEPERIDINE HCL 25 MG/ML CARP/VIAL IV ONE (19:11)
--- NOTE | 2020-02-17 19:24 | Anesthesiology Progress Note ---
Date of Service February 17, 2020 Anesthesia Post Procedure Vital Signs Vital Signs: Temp Pulse Pulse Pulse Resp BP BP 02/17/20 19:15 36.7 C 72 20 112/44 L 02/17/20 19:05 76 18 113/49 L 02/17/20 18:55 73 18 117/55 L 02/17/20 18:46 36.2 C L 83 18 117/57 L 02/17/20 15:25 37.5 C 76 16 139/61 02/17/20 07:50 36.7 C 62 16 157/62 H 02/16/20 23:15 36.5 C 58 L 16 118/74 02/16/20 20:40 95 H 170/76 H 02/16/20 20:36 36.6 C 95 H 20 201/83 H 02/16/20 20:09 72 16 152/82 H Pulse Ox 02/17/20 19:15 100 02/17/20 19:05 99 02/17/20 18:55 99 02/17/20 18:46 99 02/17/20 15:25 93 02/17/20 07:50 100 02/16/20 23:15 99 02/16/20 20:40 02/16/20 20:36 99 02/16/20 20:09 99 Pain Intensity Left Hip: Pain Intensity: 1 Transfer of Care Handoff Completed per policy Notes Mental Status: alert / awake / arousable Patient Amnestic to Procedure: Yes Nausea / Vomiting: adequately controlled Pain: adequately controlled Airway Patency, RR, SpO2: stable & adequate BP & HR: stable & adequate Hydration State: stable & adequate Neuraxial Anesthesia: was administered and sensory block is resolving Anesthetic Complications: no major complications apparent and Pt Satisfied with anesthetic care Notes: The patient is awake and comfortable.
--- NOTE | 2020-02-17 19:29 | XRay Report ---
SINGLE VIEW PELVIS; SINGLE VIEW LEFT HIP CLINICAL HISTORY: Postoperative examination. FINDINGS: An AP portable view of the hips and pelvis with a crosstable lateral portable view of the l eft hip are obtained. A bipolar left hip arthroplasty is in near-anatomic alignment. A single cortica l lag screw transfixes the acetabular cup. No acute fracture is identified. There are expected postop erative changes overlying the left hip including subcutaneous gas and soft tissue swelling. A right h ip arthroplasty is also in place. IMPRESSION: Expected postoperative findings status post left hip arthroplasty. No acute fracture is s een. ACT 112: Negative or not required by law. Electronically signed by: Remington Lynn M.D. 02/17/2020 7:28 PM
[2020-02-17] MEDS ORDERED: SODIUM CHLORIDE 0.9% 1000ML 1,000 ML IV SCH (19:34)
[2020-02-17] MEDS ORDERED: METOCLOPRAMIDE HCL INJ 5 MG/ML 2 ML VIAL IV PRN (19:34)
[2020-02-17] MEDS ORDERED: OXYCODONE HCL IR 5 MG TAB (IMMEDIATE RELEASE) PO PRN (19:34)
[2020-02-17] MEDS ORDERED: MAGNESIUM HYDROXIDE SUSP 30 ML UDC PO PRN (19:34)
[2020-02-17] MEDS ORDERED: NALOXONE HCL 0.4 MG/1 ML VIAL/CARP IV PRN (19:34)
[2020-02-17] MEDS ORDERED: HYDROmorphone INJ 0.5 MG/0.5 ML SYR IV PRN (19:34)
[2020-02-17] MEDS ORDERED: bisacodyL 10 MG SUPP PR PRN (19:34)
--- NOTE | 2020-02-17 19:49 | Orthopedic Progress Note ---
Date of Service February 17, 2020 Assessment & Plan (1) Closed left hip fracture: Status post left total hip arthroplasty -Ancef x24 DVT prophylaxis: SCDs, teds, 81 mg ASA twice daily Weight-bear as tolerates left lower extremity Posterior hip precautions PT/OT Postoperative x-ray demonstrates a well aligned well fixed prosthesis without evidence of fracture or dislocation A.m. labs Admission and Anticipated Discharge Date Admission Date: February 16, 2020 Subjective Post Operative Progress Note Patient seen in PACU, comfortable, denies complaints, pain well controlled, no acute issues. Patient is still feeling effects of spinal anesthesia. Review of Systems Review of Systems: All systems reviewed & are unremarkable except as noted in HPI & below Constitutional: as per Subjective / HPI Physical Exam Physical Exam: Left lower extremity physical exam is limited secondary to spinal anesthesia, +2 dorsalis pedis pulse, compartment soft nontender, dressing s clean dry and intact. Constitutional: WD/WN, vitals as above Results & Data ([place]) Vital Signs (Past 12 Hours) Vital Signs Temp Pulse Pulse Resp BP BP Pulse Ox 02/17/20 19:34 36.4 C L 79 16 122/59 L 98 02/17/20 19:15 36.7 C 72 20 112/44 L 100 02/17/20 19:05 76 18 113/49 L 99 02/17/20 18:55 73 18 117/55 L 99 02/17/20 18:46 36.2 C L 83 18 117/57 L 99 02/17/20 15:25 37.5 C 76 16 139/61 93 02/17/20 07:50 36.7 C 62 16 157/62 H 100
[2020-02-17] MEDS: DOCUSATE SODIUM/SENNA 50/8.6MG TAB PO SCH (21:02)
[2020-02-17] MEDS: KETOROLAC TROMETHAMINE 15 MG/ML VIAL IV SCH (21:13)
[2020-02-17] MEDS: ACETAMINOPHEN 500 MG TAB PO SCH (21:14)
[2020-02-17] MEDS: SENNA 8.6 MG TAB PO SCH (21:14)
[2020-02-17] MEDS: DOCUSATE SODIUM 100 MG CAP PO SCH (21:14)
--- NOTE | 2020-02-17 22:17 | Hospitalist Progress Note ---
Date of Service February 17, 2020 Assessment & Plan (1) Fall: Suspected mechanical fall secondary to OA Left hip. (2) Closed left hip fracture: Consult orthopedics. Scheduled for surgery later today. Analgesia with acetaminophen primarily given significant side effects to opiates Antiemetics with ondansetron +/- Phenergan CXR/EKG for pre-op clearance Revised cardiac risk score 0; 3.9% 30-day risk of , PR, or cardiac arrest (3) Osteoporosis: Vitamin D level with AM labs Follow up with PCP given extended duration of Actonel. (4) Anxiety: Continue sertraline 25mg PO QAM (5) GERD (gastroesophageal reflux disease): Switch omeprazole for pantoprazole as per hospital formulary (6) DVT prophylaxis: SCDs Chemical prophylaxis post operatively as per orthopedics recommendations Admission and Anticipated Discharge Date Admission Date: February 16, 2020 Subjective Patient reports she continues to have pain in her hip. Review of Systems Review of Systems: All systems reviewed & are unremarkable except as noted in HPI & below Physical Exam Physical Exam: Constitutional: WD/WN, vitals as above Eyes: PERRL, conjunctivae normal, anicteric sclerae ENMT: external ear and nose normal, oropharynx normal Neck: trachea midline, no thyromegaly Respiratory: normal respiratory effort, lungs clear to auscultation Cardiovascular: RRR, no murmur, no edema Gastrointestinal (Abdomen): normal bowel sounds, soft, nontender, no hepatosplenomegaly Musculoskeletal: Holding left hip in flexion and external rotation. Closed skin. NV intact distally. Pain with minimal int/ext hip rotation. Skin: no rashes, warm and dry Neurologic: moves all extremities and awake; not confused Psychiatric: A+Ox3, euthymic affect Results & Data Results & Data ([facility]) Vital Signs (Past 12 Hours) Vital Signs Temp Pulse Pulse Resp BP BP Pulse Ox 02/17/20 21:30 36.9 C 81 16 103/52 L 96 02/17/20 20:35 36.9 C 79 17 115/68 98 02/17/20 20:00 36.8 C 79 20 121/66 99 02/17/20 19:34 36.4 C L 79 16 122/59 L 98 02/17/20 19:15 36.7 C 72 20 112/44 L 100 02/17/20 19:05 76 18 113/49 L 99 09/01/20 18:55 73 18 117/55 L 99 02/17/20 18:46 36.2 C L 83 18 117/57 L 99 02/17/20 15:25 37.5 C 76 16 139/61 93 PG Care Time/CCT Total # of Minutes Spent Total Time Spent with Patient: Total time spent is greater than 50% in co ordination of care (as documented) at patient's floor/unit and/or counseling patient: Coding Level of Care Code 92401 Subseq Hosp Care Lvl 2 Diagnoses Fall W19.XXXA Closed left hip fracture S72.002A Osteoporosis M81.0 Anxiety F41.9 GERD (gastroesophageal reflux disease) K21.9 DVT prophylaxis Z29.9 Time Spent (min) 25
--- NOTE | 2020-02-17 22:29 | Electrocardiogram Report ---
Test Reason : Blood Pressure : / mmHG Vent. Rate : 068 BPM Atrial Rate : 068 BPM P-R Int : 160 ms QRS Dur : 068 ms QT Int : 428 ms P-R-T Axes : 070 028 043 degrees QTc Int : 455 ms Poor data quality, interpretation may be adversely affected Normal sinus rhythm Nonspecific ST and T wave abnormality Abnormal ECG No previous ECGs available Confirmed by Fei Sanchez ([id number]) on 02/17/2020 10:28:31 PM Referred By: REFERRED SELF Confirmed By:Fei Sanchez
[2020-02-17] MEDS: CEFAZOLIN 2000MG 2,000 MG/15 ML SYR IV SCH (23:22)
[2020-02-18] MEDS: KETOROLAC TROMETHAMINE 15 MG/ML VIAL IV SCH ×3 (04:24→17:15)
[2020-02-18] MEDS: ACETAMINOPHEN 500 MG TAB PO SCH ×3 (05:41→21:30)
[2020-02-18 06:07] LABS: Eosinophils # (auto) 0.05 K/uL (0-0.5); Eosinophils % (auto) 0.6 %; Hematocrit (blood only) 25.3 % (37-47); Hemoglobin 8.2 g/dL (12.0-16.0); Immature Granulocytes # (auto) 0.02 K/uL (0.00-0.02); Immature Granulocytes % (auto) 0.2 %; Lymphocytes # (auto) 0.73 K/uL (1.2-3.4); Lymphocytes % (auto) 8.5 %; Mean Corpuscular Hemoglobin 29.9 pg (25-34); Mean Corpuscular Hgb Conc 32.4 g/dL (32-36); Mean Corpuscular Volume 92.3 fL (80-100); Mean Platelet Volume 11.6 fL (7.4-10.4); Monocytes # (auto) 0.85 K/uL (0.11-0.59); Monocytes % (auto) 9.8 %; Neutrophils # (auto) 6.98 K/uL (1.4-6.5); Neutrophils % (auto) 80.9 %; Platelet Count 206 K/uL (130-400); RDW Coefficient of Variation 13.6 % (11.5-14.5); RDW Standard Deviation 46.3 fL (36.4-46.3); Red Blood Count 2.74 M/uL (4.2-5.4); White Blood Count 8.63 K/uL (4.8-10.8)
[2020-02-18 06:37] LABS: BUN Creatinine Ratio 18.5 (10-20); Calcium 8.2 mg/dl (8.5-10.1); Creatinine Clr Calc Pharmacy 62.3 ml/min; Est GFR (African American) 83.5; Est GFR (Non-African American) 72.1; Potassium 4.3 mmol/L (3.5-5.1)
[2020-02-18] MEDS: PANTOprazole 40 MG TAB PO SCH (08:22)
[2020-02-18] MEDS: SERTRALINE HCL 50 MG TABLET PO SCH (08:23)
[2020-02-18] MEDS: DOCUSATE SODIUM 100 MG CAP PO SCH ×2 (08:24→20:43)
[2020-02-18] MEDS: MULTIVITAMIN TAB PO SCH (08:25)
[2020-02-18] MEDS: ASPIRIN 81 MG ECTAB PO SCH ×2 (08:25→20:44)
[2020-02-18] MEDS: CEFAZOLIN 2000MG 2,000 MG/15 ML SYR IV SCH (08:28)
--- NOTE | 2020-02-18 08:33 | Orthopedic Progress Note ---
Date of Service February 18, 2020 Assessment & Plan (1) Closed left hip fracture: Status post left total hip arthroplasty for fracture POD#1 -Ancef x24 DVT prophylaxis: SCDs, teds, 81 mg ASA twice daily Weight-bear as tolerates left lower extremity Posterior hip precautions PT/OT Postoperative x-ray demonstrates a well aligned well fixed prosthesis without evidence of fracture or dislocation A.m. labs - as above, hgb 8.2 Admission and Anticipated Discharge Date Admission Date: February 16, 2020 Subjective Post Operative Progress Note Patient seen sitting up in bed, comfortable, denies complaints, pain well controlled, no acute issues. Denies F/C/N/V/SOB/CP. Review of Systems Review of Systems: All systems reviewed & are unremarkable except as noted in HPI & below Constitutional: as per Subjective / HPI Physical Exam Physical Exam: LLE NVSI +EHL/FHL/TA/GS SILT grossly, +2 DP pulse, compartments soft NT, dressing cdi. Constitutional: WD/WN, vitals as above Results & Data ([facility]) Vital Signs (Past 12 Hours) Vital Signs Temp Pulse Resp BP BP Pulse Ox 02/18/20 07:28 37.4 C 92 H 18 107/56 L 95 02/18/20 05:42 94 02/18/20 03:48 37.1 C 75 16 118/71 100 02/17/20 22:58 36.7 C 78 18 123/70 92 02/17/20 22:32 36.9 C 86 16 101/64 94 02/17/20 21:30 36.9 C 81 16 103/52 L 96 02/17/20 20:35 36.9 C 79 17 115/68 98 Laboratory Results 02/18/20 02/18/20 02/17/20 Range/Units 05:00 05:00 09:50 WBC 8.63 (4.8-10.8) K/uL RBC 2.74 L (4.2-5.4) M/uL Hgb 8.2 L D (12.0-16.0) g/dL Hct 25.3 L (37-47) % MCV 92.3 (80-100) fL MCH 29.9 (25-34) pg MCHC 32.4 (32-36) g/dL RDW Std Deviation 46.3 (36.4-46.3) fL RDW Coeff of Puja 13.6 (11.5-14.5) % Plt Count 206 (130-400) K/uL MPV 11.6 H (7.4-10.4) fL Immature Gran % (Auto) 0.2 % Neut % (Auto) 80.9 % Lymph % (Auto) 8.5 % [place] % (Auto) 9.8 % Eos % (Auto) 0.6 % Baso % (Auto) 0.0 % Neut # (Auto) 6.98 H (1.4-6.5) K/uL Lymph # (Auto) 0.73 L (1.2-3.4) K/uL [place] # (Auto) 0.85 H (0.11-0.59) K/uL Eos # (Auto) 0.05 (0-0.5) K/uL Baso # (Auto) 0.00 (0-0.2) K/uL Immature Gran # (Auto) 0.02 (0.00-0.02) K/uL Sodium 141 (136-145) mmol/L Potassium 4.3 (3.5-5.1) mmol/L Chloride 111 H (98-107) mmol/L Carbon Dioxide 26 (21-32) mmol/L Anion Gap 4.0 (3-11) BUN 15 (7-18) mg/dl Creatinine 0.81 (0.6-1.2) mg/dl Est Cr Clr Drug Dosing 62.3 ml/min Est GFR ( Amer) 83.5 Est GFR (Non-Af Amer) 72.1 BUN/Creatinine Ratio 18.5 (10-20) Glucose 117 H (70-99) mg/dl Calcium 8.2 L (8.5-10.1) mg/dl COVID-19 Eval Order SARS-CoV-2, RNA, NAAT NEGATIVE (NEGATIVE) Blood Type Antibody Screen Antibody Identification Antibody ID Comment Crossmatch 02/17/20 02/17/20 Range/Units 09:50 08:06 WBC (4.8-10.8) K/uL RBC (4.2-5.4) M/uL Hgb (12.0-16.0) g/dL Hct (37-47) % MCV (80-100) fL MCH (25-34) pg MCHC (32-36) g/dL RDW Std Deviation (36.4-46.3) fL RDW Coeff of Puja (11.5-14.5) % Plt Count (130-400) K/uL MPV (7.4-10.4) fL Immature Gran % (Auto) % Neut % (Auto) % Lymph % (Auto) % [place] % (Auto) % Eos % (Auto) % Baso % (Auto) % Neut # (Auto) (1.4-6.5) K/uL Lymph # (Auto) (1.2-3.4) K/uL [place] # (Auto) (0.11-0.59) K/uL Eos # (Auto) (0-0.5) K/uL Baso # (Auto) (0-0.2) K/uL Immature Gran # (Auto) (0.00-0.02) K/uL Sodium (136-145) mmol/L Potassium (3.5-5.1) mmol/L Chloride (98-107) mmol/L Carbon Dioxide (21-32) mmol/L Anion Gap (3-11) BUN (7-18) mg/dl Creatinine (0.6-1.2) mg/dl Est Cr Clr Drug Dosing ml/min Est GFR ( Amer) Est GFR (Non-Af Amer) BUN/Creatinine Ratio (10-20) Glucose (70-99) mg/dl Calcium (8.5-10.1) mg/dl COVID-19 Eval Order Covid19 [facility] SARS-CoV-2, RNA, NAAT (NEGATIVE) Blood Type A Negative Antibody Screen POSITIVE A Antibody Identification Anti-D Antibody ID Comment Crossmatch See Detail
[2020-02-18] MEDS: CeleBREX 200 MG CAP PO SCH (20:43)
[2020-02-18] MEDS: SENNA 8.6 MG TAB PO SCH (20:44)
--- NOTE | 2020-02-18 22:55 | Hospitalist Progress Note ---
Date of Service February 18, 2020 Assessment & Plan (1) Fall: Suspected mechanical fall secondary to OA Left hip. (2) Closed left hip fracture: Osteoporotic fracture of left hip in the setting of ground level mechanical fall Consult orthopedics. S/P surgeric repair. Analgesia with acetaminophen primarily given significant side effects to opiates Antiemetics with ondansetron +/- Phenergan await input from PT/OT if patient can return home. Hemoglobin is lower, likely secondary to surgery. will monitor. (3) Osteoporosis: Vitamin D level with AM labs Follow up with PCP given extended duration of Actonel. (4) Anxiety: Continue sertraline 25mg PO QAM (5) GERD (gastroesophageal reflux disease): Switch omeprazole for pantoprazole as per hospital formulary (6) DVT prophylaxis: SCDs Chemical prophylaxis post operatively as per orthopedics recommendations (7) Acute blood loss anemia: hemoglobin dropped to 8 will monitor. Admission and Anticipated Discharge Date Admission Date: February 16, 2020 Subjective Patient reports feeling better. She has no new complaints at this time. Review of Systems Review of Systems: All systems reviewed & are unremarkable except as noted in HPI & below Physical Exam Physical Exam: Constitutional: WD/WN, vitals as above Eyes: PERRL, conjunctivae normal, anicteric sclerae ENMT: external ear and nose normal, oropharynx normal Neck: trachea midline, no thyromegaly Respiratory: normal respiratory effort, lungs clear to auscultation Cardiovascular: RRR, no murmur, no edema Gastrointestinal (Abdomen): normal bowel sounds, soft, nontender, no hepatosplenomegaly Musculoskeletal: Holding left hip in flexion and external rotation. Closed skin. NV intact distally. Pain with minimal int/ext hip rotation. Skin: no rashes, warm and dry Neurologic: moves all extremities and awake; not confused Psychiatric: A+Ox3, euthymic affect Results & Data Results & Data ([facility]) Vital Signs (Past 12 Hours) Vital Signs Temp Pulse Resp BP Pulse Ox 02/18/20 19:45 37.1 C 88 18 105/52 L 93 02/18/20 18:58 37 C 60 18 94/57 L 92 02/18/20 15:26 37.5 C 95 H 18 101/57 L 94 02/18/20 12:15 37.1 C 97 H 16 96/61 L 94 PG Care Time/CCT Total # of Minutes Spent Total Time Spent with Patient: Total time spent is greater than 50% in coordination of care (as documented) at patient's floor/unit and/or counseling patient: Coding Level of Care Code 16714 Subseq Hosp Care Lvl 2 Diagnoses Fall W19.XXXA Closed left hip fracture S72.002A Osteoporosis M81.0 Anxiety F41.9 GERD (gastroesophageal reflux disease) K21.9 DVT prophylaxis Z29.9 Acute blood loss anemia D62 Time Spent (min) 25
[2020-02-19 05:57] LABS: Basophils # (auto) 0.01 K/uL (0-0.2); Basophils % (auto) 0.1 %; Eosinophils # (auto) 0.28 K/uL (0-0.5); Eosinophils % (auto) 3.7 %; Hemoglobin 8.1 g/dL (12.0-16.0); Immature Granulocytes # (auto) 0.01 K/uL (0.00-0.02); Immature Granulocytes % (auto) 0.1 %; Lymphocytes % (auto) 14.7 %; Mean Corpuscular Hgb Conc 32.4 g/dL (32-36); Mean Corpuscular Volume 92.6 fL (80-100); Mean Platelet Volume 11.3 fL (7.4-10.4); Neutrophils % (auto) 69.4 %; Platelet Count 204 K/uL (130-400); RDW Coefficient of Variation 13.7 % (11.5-14.5); RDW Standard Deviation 46.1 fL (36.4-46.3)
[2020-02-19] MEDS: ACETAMINOPHEN 500 MG TAB PO SCH ×3 (06:06→21:34)
[2020-02-19 06:42] LABS: BUN Creatinine Ratio 25.8 (10-20); Calcium 8.2 mg/dl (8.5-10.1); Creatinine Clr Calc Pharmacy 55.4 ml/min; Est GFR (African American) 72.5; Est GFR (Non-African American) 62.6; Potassium 3.6 mmol/L (3.5-5.1)
[2020-02-19] MEDS: SERTRALINE HCL 50 MG TABLET PO SCH (08:53)
[2020-02-19] MEDS: MULTIVITAMIN TAB PO SCH (08:53)
[2020-02-19] MEDS: ASPIRIN 81 MG ECTAB PO SCH ×2 (08:55→19:43)
[2020-02-19] MEDS: CeleBREX 200 MG CAP PO SCH ×2 (08:55→19:43)
[2020-02-19] MEDS: PANTOprazole 40 MG TAB PO SCH (08:55)
[2020-02-19] MEDS: DOCUSATE SODIUM 100 MG CAP PO SCH ×2 (08:55→19:43)
--- NOTE | 2020-02-19 09:14 | Orthopedic Progress Note ---
Date of Service February 19, 2020 Assessment & Plan (1) Closed left hip fracture: Status post left total hip arthroplasty for fracture POD#2 -Ancef x24 DVT prophylaxis: SCDs, teds, 81 mg ASA twice daily Weight-bear as tolerates left lower extremity Posterior hip precautions PT/OT Postoperative x-ray demonstrates a well aligned well fixed prosthesis without evidence of fracture or dislocation A.m. labs - as above, hgb 8.1, stable POD#1 -Ancef x24 DVT prophylaxis: SCDs, teds, 81 mg ASA twice daily Weight-bear as tolerates left lower extremity Posterior hip precautions PT/OT Postoperative x-ray demonstrates a well aligned well fixed prosthesis without evidence of fracture or dislocation A.m. labs - as above, hgb 8.2 Admission and Anticipated Discharge Date Admission Date: February 16, 2020 Subjective Post Operative Progress Note Patient seen sitting up in bed, comfortable, denies complaints, pain well controlled, no acute issues. Denies F/C/N/V/SOB/CP. Review of Systems Review of Systems: All systems reviewed & are unremarkable except as noted in HPI & below Constitutional: as per Subjective / HPI Physical Exam Physical Exam: LLE NVSI +EHL/FHL/TA/GS SILT grossly, +2 DP pulse, compartments soft NT, dressing cdi. Constitutional: WD/WN, vitals as above Results & Data ([facility]) Vital Signs (Past 12 Hours) Vital Signs Temp Pulse Resp BP Pulse Ox 02/19/20 07:11 37.1 C 84 16 117/56 L 93 02/18/20 23:06 36.8 C 84 16 132/67 92 Laboratory Results 02/19/20 02/19/20 Range/Units 05:23 05:23 WBC 7.50 (4.8-10.8) K/uL RBC 2.70 L (4.2-5.4) M/uL Hgb 8.1 L (12.0-16.0) g/dL Hct 25.0 L (37-47) % MCV 92.6 (80-100) fL MCH 30.0 (25-34) pg MCHC 32.4 (32-36) g/dL RDW Std Deviation 46.1 (36.4-46.3) fL RDW Coeff of Puja 13.7 (11.5-14.5) % Plt Count 204 (130-400) K/uL MPV 11.3 H (7.4-10.4) fL Immature Gran % (Auto) 0.1 % Neut % (Auto) 69.4 % Lymph % (Auto) 14.7 % [place] % (Auto) 12.0 % Eos % (Auto) 3.7 % Baso % (Auto) 0.1 % Neut # (Auto) 5.20 (1.4-6.5) K/uL Lymph # (Auto) 1.10 L (1.2-3.4) K/uL [place] # (Auto) 0.90 H (0.11-0.59) K/uL Eos # (Auto) 0.28 (0-0.5) K/uL Baso # (Auto) 0.01 (0-0.2) K/uL Immature Gran # (Auto) 0.01 (0.00-0.02) K/uL Sodium 143 (136-145) mmol/L Potassium 3.6 D (3.5-5.1) mmol/L Chloride 113 H (98-107) mmol/L Carbon Dioxide 24 (21-32) mmol/L Anion Gap 6.0 (3-11) BUN 24 H D (7-18) mg/dl Creatinine 0.91 (0.6-1.2) mg/dl Est Cr Clr Drug Dosing 55.4 ml/min Est GFR ( Amer) 72.5 Est GFR (Non-Af Amer) 62.6 BUN/Creatinine Ratio 25.8 H (10-20) Glucose 103 H (70-99) mg/dl Calcium 8.2 L (8.5-10.1) mg/dl
[2020-02-19] MEDS: SENNA 8.6 MG TAB PO SCH (19:43)
--- NOTE | 2020-02-19 22:46 | Hospitalist Progress Note ---
Date of Service February 19, 2020 Assessment & Plan (1) Fall: Suspected mechanical fall secondary to OA Left hip. S/P surgical repair of left hip (2) Closed left hip fracture: Osteoporotic fracture of left hip in the setting of ground level mechani fidel fall Consult orthopedics. S/P surgical repair. Plan is to discharge tomorrow. Will keep her to monitor pain control. hemoglobin has remained stable. Continue ASA 81 MG PO BID as per ortho for 6 weeks. (3) Osteoporosis: Vitamin D level with AM labs Follow up with PCP given extended duration of Actonel. (4) Anxiety: Continue sertraline 25mg PO QAM (5) GERD (gastroesophageal reflux disease): Switch omeprazole for pantoprazole as per hospital formulary (6) DVT prophylaxis: SCDs Chemical prophylaxis post operatively as per orthopedics recommendations (7) Acute blood loss anemia: hemoglobin dropped to 8 but has stabilized there Admission and Anticipated Discharge Date Admission Date: February 16, 2020 Subjective Patient reports feeling better, however she is refusing discharge today. Wants one more day. Review of Systems Review of Systems: All systems reviewed & are unremarkable except as noted in HPI & below Physical Exam Physical Exam: Constitutional: WD/WN, vitals as above Eyes: PERRL, conjunctivae normal, anicteric sclerae ENMT: external ear and nose normal, oropharynx normal Neck: trachea midline, no thyromegaly Respiratory: normal respiratory effort, lungs clear to auscultation Cardiovascular: RRR, no murmur, no edema Gastrointestinal (Abdomen): normal bowel sounds, soft, nontender, no hepatosplenomegaly. Skin: no rashes, warm and dry Neurologic: moves all extremities and awake; not confused Psychiatric: A+Ox3, euthymic affect Results & Data Results & Data ([facility]) Vital Signs (Past 12 Hours) Vital Signs Temp Pulse Resp BP Pulse Ox 02/19/20 15:31 37.4 C 95 H 16 114/58 L 94 PG Care Time/CCT Total # of Minutes Spent Total Time Spent with Patient: Total time spent is greater than 50% in coordination of care (as documented) at patient's floor/unit and/or counseling patient: Coding Level of Care Code 81780 Subseq Hosp Care Lvl 2 Diagnoses Fall W19.XXXA Closed left hip fracture S72.002A Osteoporosis M81.0 Anxiety F41.9 GERD (gastroesophageal reflux disease) K21.9 DVT prophylaxis Z29.9 Acute blood loss anemia D62 Time Spent (min) 25
[2020-02-20] MEDS: ACETAMINOPHEN 500 MG TAB PO SCH (05:23)
[2020-02-20 05:31] LABS: Basophils # (auto) 0.01 K/uL (0-0.2); Basophils % (auto) 0.1 %; Eosinophils # (auto) 0.31 K/uL (0-0.5); Eosinophils % (auto) 4.5 %; Hematocrit (blood only) 23.2 % (37-47); Hemoglobin 7.6 g/dL (12.0-16.0); Immature Granulocytes # (auto) 0.02 K/uL (0.00-0.02); Immature Granulocytes % (auto) 0.3 %; Lymphocytes # (auto) 1.35 K/uL (1.2-3.4); Lymphocytes % (auto) 19.4 %; Mean Corpuscular Hemoglobin 29.9 pg (25-34); Mean Corpuscular Hgb Conc 32.8 g/dL (32-36); Mean Corpuscular Volume 91.3 fL (80-100); Monocytes % (auto) 11.5 %; Neutrophils # (auto) 4.47 K/uL (1.4-6.5); Neutrophils % (auto) 64.2 %; Platelet Count 216 K/uL (130-400); RDW Coefficient of Variation 13.6 % (11.5-14.5); RDW Standard Deviation 45.7 fL (36.4-46.3); Red Blood Count 2.54 M/uL (4.2-5.4); White Blood Count 6.96 K/uL (4.8-10.8)
[2020-02-20 05:57] LABS: RBC Morphology Unremarkable
[2020-02-20 06:09] LABS: BUN Creatinine Ratio 23.7 (10-20); Calcium 8.3 mg/dl (8.5-10.1); Creatinine Clr Calc Pharmacy 58.7 ml/min; Est GFR (African American) 77.7; Potassium 3.8 mmol/L (3.5-5.1)
[2020-02-20] MEDS: PANTOprazole 40 MG TAB PO SCH (08:32)
[2020-02-20] MEDS: MULTIVITAMIN TAB PO SCH (08:32)
[2020-02-20] MEDS: DOCUSATE SODIUM 100 MG CAP PO SCH (08:33)
[2020-02-20] MEDS: ASPIRIN 81 MG ECTAB PO SCH (08:33)
[2020-02-20] MEDS: SERTRALINE HCL 50 MG TABLET PO SCH (08:33)
[2020-02-20] MEDS: CeleBREX 200 MG CAP PO SCH (08:33)
--- NOTE | 2020-02-20 08:34 | Orthopedic Progress Note ---
Date of Service February 20, 2020 Assessment & Plan (1) Closed left hip fracture: Status post left total hip arthroplasty for fracture POD#3 DVT prophylaxis: SCDs, teds, 81 mg ASA twice daily Weight-bear as tolerates left lower extremity Posterior hip precautions PT/OT Okay per Ortho for discharge to home today. Admission and Anticipated Discharge Date Admission Date: February 16, 2020 Subjective Postop day 3 Patient lying in bed awake and alert. No complaints this morning. Pain is controlled. Denies shortness of breath, chest pain, lightheadedness. She is hoping to go home today. Physical Exam Physical Exam: .Dressings are clean, dry, and intact. Dressing is pulled away to view the wound which appears benign. Thigh is mildly swollen. Calves are soft, nontender. Neurovascular is intact. Toes are mobile. Leg lengths appear equal Results & Data ([facility]) Vital Signs (Past 12 Hours) Vital Signs Temp Pulse Resp BP Pulse Ox 02/20/20 07:17 37.1 C 86 16 128/76 94 02/19/20 23:55 37.2 C 89 18 108/57 L 95
--- NOTE | 2020-02-20 10:55 | Discharge Summary ---
Date of Service February 20, 2020 Admission HPI Per Admitting Provider Sriram Bazan is a 74 year old female who presents to the ER with left hip pain after tripping up a step at home. She has been having problems with left hip osteoarthritis with planned total hip replacement in the near future. She feels the pain and instability in this hip led to her fall. Tripped walking up 1 step. No dizziness, shortness of breath prior to the fall. No loss of consciousness or hitting her head. She denies any history fo strokes or heart attacks. Takes Actonel for osteoporosis for the last 6-7 years and reports no recent DEXA scans within the last 2 years. Admission Exam Per Admitting Provider Constitutional: WD/WN, vitals as above Eyes: PERRL, conjunctivae normal, anicteric sclerae ENMT: external ear and nose normal, oropharynx normal Neck: trachea midline, no thyromegaly Respiratory: normal respiratory effort, lungs clear to auscultation Cardiovascular: RRR, no murmur, no edema Gastrointestinal (Abdomen): normal bowel sounds, soft, nontender, no hepatosplenomegaly Musculoskeletal: Holding left hip in flexion and external rotation. Closed skin. NV intact distally. Pain with minimal int/ext hip rotation. Skin: no rashes, warm and dry Neurologic: moves all extremities and awake; not confused Psychiatric: A+Ox3, euthymic affect Principal Diagnosis Left hip fracture status post fall Discharge Exam GENERAL : No acute distress EYES: No icterus, gaze conjugate NOSE: No evidence of epistaxis MOUTH: No lesions or candidiasis NECK: Supple LUNGS: CTA B/L, no wheezes, rales or rhonchi HEART: Regular, rate controlled ABDOMEN: Soft, NT, ND, BS Present EXTREMITIES: No LE edema, pedal pulses intact. No rotation of the left foot. Dressing dry and intact over left hip repair incision site. Minimal pain to palpation. NEURO: A&OX3 Discharge Data Allergies Allergy/AdvReac Type Severity Reaction Status Date / Time No Known Allergies Allergy Verified 02/16/20 19:36 Consultations 02/16/20 18:36 ED Decision to Admit Stat 02/16/20 20:42 Consult Case Management - Discharge Planning Routine Consult Orthopedic Surgery Routine 02/18/20 08:00 Consult Case Management - Discharge Planning Routine Procedures Performed Operation Date: 02/17/20 08:20 Actual Procedures p Left Total Hip Arthroplasty(Left) - Joel R Antholz, DO Laboratory Tests 02/17/20 05:37 25-OH Vitamin D Total 29.0 L Hospital Course (1) Closed left hip fracture: Status post mechanical fall Open reduction internal fixation 02/17/[address] Guadalupe Discharge home today Home health nursing as well as physical therapy as scheduled Follow-up in the outpatient office per orthopedics (2) Fall: Mechanical fall at home No syncope or presyncope Home health nursing is being set up Advised patient to look for safety hazards at home to avoid future falls [place] fall risk prevention is being sent home with the patient as part of discharge summary (3) Osteoporosis: Laboratory Tests 02/17/20 05:37 25-OH Vitamin D Total 29.0 L Follow-up with outpatient primary care physician Continue Actonel (4) Anxiety: Sertraline 25 mg p.o. 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 twice daily Total Time Total Time Spent Total Time Spent (In Minutes): 40 minutes Total Time Includes: Examination of the Patient, Discharge Planning, Medication Reconciliation and Communication With Other Providers Discharge Plan Discharge Items Patient Disposition: Home - Home Health Services Reason For Visit: LEFT HIP FRACTURE Discharge Diagnosis: Left Hip Fracture Condition on Discharge: Good Activity: Per Instructions section Lifting Comment: Per orthopedics Bathing: Keep incision dry Sexual Activity: Wait until after follow-up appointment Exercise/Sports: Wait until after follow-up appointment Weightbearing: Left weightbearing Weightbearing Comment: as tolerated with walker Non-emergency contact: Surgeon Call non-emergency contact if: your pain is not controlled, your temperature is above 101.5, your wound has increased redness and your wound has increased drainage Follow-up/Referrals: Malou Gomes D.O. [Primary Care Provider] - Diet: Regular Addtl Attending Provider Instructions: Follow-up per orthopedic group Addtl Weighter Provider Instructions: ACTIVITY RECOMMENDATIONS: SELF CARE INSTRUCTIONS AFTER TOTAL HIP REPLACEMENT Until the incision and soft tissues around your hip have healed, there is a possibility that the hip prosthesis could dislocate. A. Observe the following precautions to prevent dislocation: 1. Don't bend your hip greater than 90 degrees. 2. Avoid crossing your legs or ankles while standing or lying. 3. Sit with your feet placed 6 inches apart. 4. When sitting, keep your knees below your hips. Sit on a firm surface, avoid deep, soft chairs and couches. Use an elevated toilet seat in the bathroom. 5. Don't bend over at the waist. Use a long handled shoehorn and a sock aid to help you put on your shoes and socks. A truck body builder apprentice can help you cigar packer and picker objects that are too high or too low to reach. 6. Keep car riding to a minimum for at least one month after surgery. B. Your balance may be shaky for a while. Use crutches or a walker until directed by your doctor. C. Use hand rails when walking on stairs. D. Wear low heeled shoes with non-slip soles. E. Be sure that your floors are free of things that could trip you - throw rugs, electrical cords, small objects. Avoid wet and waxed floors, especially with crutches and canes. F. Try to walk several times a day with rest periods between. G. Continue with all the exercises taught to you in the hospital. Again, make walking a part of your daily routine. SPECIAL CARE INSTRUCTIONS: VERY IMPORTANT TO READ AND REVIEW A. You may still be at risk for phlebitis and blood clots. 1. Wear surgical stockings (FAUZIA hose) for 2 weeks after surgery to improve circulation and reduce swelling. 2. Take Aspirin 81mg twice daily for 4 weeks or as directed by your doctor. This is your blood thinner. 3. High risk patients may be prescribed a stronger blood thinner if necessary. 4. If you are on Coumadin normally, your family doctor/shampoo person should monitor your blood work. Expect a phone call the day of or the day after bloodwork is drawn to adjust your dosage. B. You must take antibiotics before having dental work, bladder, bowel and other surgery. Your doctor will provide you with a permanent card to carry describing precautions. C. Call [facility] if you have a fever, redness or swelling around the incision, cloudy drainage from incision, or sudden increase in pain in your hip, not relieved by your regular pain medication. D. Please call the office at if you have any concerns or questions about your operation or recovery. * YOU MAY SHOWER, NO TUB BATHS UNTIL CLEARED BY YOUR DOCTOR. * WEAR FAUZIA HOSE 20 HOURS PER DAY FOR 2 WEEKS. * YOU SHOULD USE A WALKER OR CRUTCHES FOR 2-4 WEEKS. THIS WILL HELP PREVENT STRAIN ON YOUR HIP MUSCLE AND ALLOW IT TO HEAL PROPERLY. YOU MAY WEAN TO A CANE TOLERATED. * MOST PATIENTS WILL HAVE HOME NURSING FOR THERAPY. IF YOU DECIDE TO DO OUTPATIENT PHYSICAL THERAPY, PLEASE SCHEDULE THIS 3 TIMES PER WEEK. * DERMABOND Prineo- This is a mesh tape dressing that is covered with glue. It should remain in place until the incision is properly healed, usually 10-14 days. This dressing is designed to naturally slough off. You may trim the excess mesh tape as it peels off. Incision may be briefly wet in a shower. Dry immediately by blotting with a clean, dry towel. Do not bath or swim until instructed by your doctor. Do not scratch, rub, or pick at the dressing. Do not apply any topical ointments or lotions until dressing is completely removed and/or instructed by your doctor. There may be a small piece of suture material at one end of your incision. Do not pull or trim this. If it is bothersome or catching on clothing, you may c over it with a band-aid. . FOLLOW UP VISIT: If appointment is not already scheduled: Please call [facility] to make a follow-up appointment for 2 weeks after your surgery at . Pending Studies at Discharge: No Stand-Alone Forms: My ZEFR, Smoking Cessation Medications and DC Order Prescriptions: New aspirin 81 mg Tablet,Delayed Release (Dr/Ec) 81 mg PO BID 30 Days Qty: 60 RF: 0 acetaminophen 500 mg Tablet 1,000 mg PO Q8 14 Days Qty: 84 RF: 0 oxycodone 5 mg Tablet 5 mg PO Q4H MDD 6 PRN (Reason: pain) Qty: 30 RF: 0 Continued sertraline [Zoloft] 25 mg Tablet 25 mg PO QAM RF: 0 risedronate [Actonel] 150 mg Tablet 150 mg PO MONTHLY RF: 0 omeprazole 40 mg capsule,delayed release(DR/EC) 40 mg PO QAM RF: 0 Discharge Orders: Discharge Order (Routine); Ordered 02/20/20 Ordered By: Remington Lebron/Other Patient Handouts: Falls Preventing Admission Data Admit Date/Time: 02/16/20 19:45 Attending Provider: Jono Wei Admit Provider: Morales Atkins Primary Care Provider: Malou Gomes Other Providers: Ld Perea ; Jono Wei Other Interventions: Discharge Summary Assessment (RN) Last Done: 02/20/20 10:29 Supervising Physician Co-Signing Physician Notes I supervised Remington Kaba PA-C on this patient's care. I examined the patient today independently of him. I discussed the plan of care with him with the plan being as written in his note except for any following changes/exceptions: None. Doing well today. No major hip pain. Walking with walker. Can check hgb as outpatient, but would expect this to rise now after surgery. Coding Level of Care Code D/C Day Management >30 mins Diagnoses Closed left hip fracture S72.002A Fall W19.XXXA Osteoporosis M81.0 Anxiety F41.9 GERD (gastroesophageal reflux disease) K21.9 Acute blood loss anemia D62 Geographic tongue K14.1 DVT prophylaxis Z29.9 Time Spent (min) 40
== END 2020-02-20 12:42 | disposition home health service (06) | DRG 470 ==
LOC: ED 16:55 → 3N 19:45 → SUATTDRO 19:45 → 3N 20:09